=== PATIENT | female | born 1965 | race Caucasian/White ===

== ENCOUNTER 2019-12-07 01:03 | Observation (INO) ==
[2019-12-07] MEDS ORDERED: ASPIRIN EC 325 MG TABLET PO STA (01:26)
[2019-12-07] MEDS ORDERED: NITROGLYCERIN SL 0.4 MG TABLET SL STA (01:26)
[2019-12-07 01:29] LABS: Basophils # 0.1 10*3/uL (0.0-0.2); Basophils % 0.5 % (0.0-0.8); Eosinophils # 0.4 10*3/uL (0.0-0.87); Eosinophils % 2.7 % (0.00-10.9); Hematocrit 37.6 VOL% (35.7-47.0); Hemoglobin 12.5 GM/DL (12.0-16.0); Immature Granulocytes % 0.4 %; Immature Granulocytes Absolute 0.06 #; Lymphocytes # 5.8 10*3/uL (1.4-4.0); Mean Corpuscular HGB Conc 33.2 GM/DL (32-36); Mean Corpuscular Volume 95.9 FL (87-102); Mean Platelet Volume 10.9 FL (9.6-12.0); Monocytes % 7.4 % (1.7-12.7); Platelet Count 216 T/CUMM (130-400); Red Blood Count 3.92 MC/CUMM (3.8-5.5); Red Cell Distribution Width 13.8 % (9.3-17.3); White Blood Count 14.4 T/CUMM (4-12)
[2019-12-07] MEDS ORDERED: ASPIRIN 325 MG TABLET ONE (01:29)
[2019-12-07] MEDS ORDERED: ASPIRIN 325 MG TABLET PO STA (01:30)
[2019-12-07 01:40] LABS: INR 0.9
[2019-12-07 01:57] LABS: Alanine Aminotransferase 18 U/L (13-56); Albumin 3.3 G/DL (3.4-5.0); Alkaline Phosphatase 55 U/L (45-117); Aspartate Amino Transferase 14 U/L (0-37); Bilirubin,Total < 0.39 MG/DL (0.2-1.0); Blood Urea Nitrogen 15 MG/DL (7-18); Calcium 8.7 MG/DL (8.5-10.1); Estimated Glom Filtration Rate 61 ML/MIN; Glucose 88 MG/DL (74-106); Osmolality,Calculated 282.1 MOS/KG (273-304); Total Protein 6.8 G/DL (6.4-8.3)
[2019-12-07 02:13] LABS: Band Neutrophils 1 % (0-10); Eosinophils 1 % (0-10); Lymphocytes 49 % (20-55); Platelet Estimate Normal; Segmented Neutrophils 45 % (50-85); Total Cells Counted 100
[2019-12-07] MEDS ORDERED: ACETAMINOPHEN 325 MG TABLET PO PRN (02:51)
[2019-12-07] MEDS ORDERED: GLUCAGON 1 MG VIAL IM PRN (02:51)
[2019-12-07] MEDS ORDERED: DEXTROSE 50% 25 GM/50 ML VIAL IV PRN (02:51)
[2019-12-07] MEDS ORDERED: ONDANSETRON 4 MG/2 ML VIAL IV PRN (02:51)
[2019-12-07 03:33] LABS: Risk Ratio 3.51; VLDL CHOLESTEROL 59.8 MG/DL
[2019-12-07 05:31] LABS: Basophils # 0.1 10*3/uL (0.0-0.2); Basophils % 0.5 % (0.0-0.8); Eosinophils # 0.3 10*3/uL (0.0-0.87); Eosinophils % 2.5 % (0.00-10.9); Hematocrit 34.8 VOL% (35.7-47.0); Hemoglobin 11.7 GM/DL (12.0-16.0); Immature Granulocytes % 0.3 %; Immature Granulocytes Absolute 0.04 #; Lymphocytes % 33.9 % (21.3-54.2); Mean Corpuscular HGB Conc 33.6 GM/DL (32-36); Mean Corpuscular Volume 96.1 FL (87-102); Mean Platelet Volume 11.2 FL (9.6-12.0); Neutrophils % 55.8 % (38.7-73.9); Platelet Count 200 T/CUMM (130-400); Red Blood Count 3.62 MC/CUMM (3.8-5.5); Red Cell Distribution Width 13.8 % (9.3-17.3); White Blood Count 11.8 T/CUMM (4-12)
[2019-12-07] MEDS ORDERED: ASPIRIN EC 81 MG TABLET PO SCH (09:00)
[2019-12-07] MEDS ORDERED: PANTOPRAZOLE 40 MG TABLET PO SCH (09:00)
[2019-12-07] MEDS ORDERED: ENOXAPARIN 40 MG/0.4 ML SYRINGE SUBCUT SCH (09:00)
[2019-12-07 12:14] VITALS: BP 117/65
[2019-12-07] MEDS ORDERED: ATORVASTATIN 40 MG TABLET PO SCH (21:00)
== END 2019-12-07 13:05 | disposition home or self-care (01) ==
LOC: EDSEX → N.EDINP 01:03 → N.ED 01:03 → N.TELEN 03:25
PROVIDERS: ADMIT Internal Medicine; ATTEND Internal Medicine

== ENCOUNTER 2021-07-25 04:43 | Observation (INO) ==
[2021-07-25] MEDS ORDERED: NITROGLYCERIN 2% OINT 1 INCH/GM PACK TOP STA (05:02)
[2021-07-25] MEDS ORDERED: ALBUTEROL/IPRATROPIUM 3 ML NEB RESP TX STA (05:02)
[2021-07-25] MEDS ORDERED: ONDANSETRON 4 MG/2 ML VIAL IV STA (05:02)
[2021-07-25] MEDS ORDERED: methylPREDNISolone SOD SUC 125 MG/2 ML VIAL IV STA (05:02)
[2021-07-25] MEDS ORDERED: MORPHINE 2 MG/1 ML SYRINGE IV STA (05:02)
[2021-07-25] MEDS ORDERED: ASPIRIN 325 MG TABLET PO STA (05:02)
[2021-07-25 05:29] LABS: Basophils # 0.1 10*3/uL (0.0-0.2); Basophils % 0.6 % (0.0-0.8); Eosinophils # 0.3 10*3/uL (0.0-0.87); Eosinophils % 2.5 % (0.00-10.9); Hematocrit 39.2 VOL% (35.7-47.0); Hemoglobin 12.5 GM/DL (12.0-16.0); Immature Granulocytes % 0.2 %; Immature Granulocytes Absolute 0.02 #; Lymphocytes # 4.8 10*3/uL (1.4-4.0); Lymphocytes % 44.5 % (21.3-54.2); Mean Corpuscular HGB Conc 31.9 GM/DL (32-36); Mean Corpuscular Volume 97.5 FL (87-102); Mean Platelet Volume 10.2 FL (9.6-12.0); Monocytes # 0.9 10*3/uL (0.11-0.8); Monocytes % 7.9 % (1.7-12.7); Neutrophils % 44.3 % (38.7-73.9); Platelet Count 261 T/CUMM (130-400); Red Blood Count 4.02 MC/CUMM (3.8-5.5); Red Cell Distribution Width 13.6 % (9.3-17.3); White Blood Count 10.8 T/CUMM (4-12)
[2021-07-25 05:40] LABS: INR 0.9; PT Patient Result 10.3 SECS (10.5-12.0); Partial Thromboplastin Time 27.2 SECS (23.8-32.1)
[2021-07-25] MEDS ORDERED: ENOXAPARIN 100 MG/ML SYRINGE SUBCUT STA (05:59)
[2021-07-25 06:01] LABS: Alanine Aminotransferase 15 U/L (13-56); Albumin 3.2 G/DL (3.4-5.0); Alkaline Phosphatase 53 U/L (45-117); Aspartate Amino Transferase 13 U/L (0-37); Bilirubin,Total < 0.39 MG/DL (0.20-1.00); Blood Urea Nitrogen 12 MG/DL (7-18); Calcium 8.7 MG/DL (8.5-10.1); Carbon Dioxide 24 MMOL/L (21-32); Chloride 111 MMOL/L (98-107); Glucose 102 MG/DL (74-106); Osmolality,Calculated 278.4 MOS/KG (273-304); Potassium 3.4 MMOL/L (3.5-5.1); Sodium 140 MMOL/L (136-145); Total Protein 6.6 G/DL (6.4-8.2)
[2021-07-25] MEDS ORDERED: DEXTROSE 10% 250 ML BAG IV PRN (06:24)
[2021-07-25] MEDS ORDERED: ACETAMINOPHEN 325 MG TABLET PO PRN (06:24)
[2021-07-25] MEDS ORDERED: GLUCAGON 1 MG VIAL IM PRN (06:24)
[2021-07-25] MEDS ORDERED: MORPHINE 2 MG/1 ML SYRINGE IV PRN (06:24)
[2021-07-25] MEDS ORDERED: NICOTINE 21 MG/24 HR PATCH TRANSDERM PRN (06:24)
[2021-07-25] MEDS ORDERED: ONDANSETRON 4 MG/2 ML VIAL IV PRN (06:24)
[2021-07-25] MEDS ORDERED: POTASSIUM CHLORIDE 20 MEQ TABLET PO ONE (06:30)
[2021-07-25] MEDS ORDERED: CLORAZEPATE 3.75 MG TABLET PO PRN (06:34)
[2021-07-25] MEDS ORDERED: ALBUTEROL/IPRATROPIUM 3 ML NEB RESP TX PRN (06:34)
[2021-07-25 07:05] LABS: Risk Ratio 3.97; Thyroid Stimulating Hormone 2.49 uIU/ml (0.358-3.74); VLDL Cholesterol 73.8 MG/DL
[2021-07-25 07:48] LABS: Barbiturates Screen,Urine Negative (Negative); Benzodiazepines Screen,Urine Negative (Negative); Cannabinoid Screen,Urine Negative (Negative); Opiate Screen,Urine Positive (Negative); Phencyclidine Screen,Urine Negative (Negative)
[2021-07-25] MEDS ORDERED: PANTOPRAZOLE 40 MG TABLET PO SCH (09:00)
[2021-07-25 11:52] VITALS: BP 95/75
[2021-07-25] MEDS ORDERED: OMEGA 3 ACID ETHYL ESTERS 1 GM CAPSULE PO SCH (21:00)
== END 2021-07-25 14:07 | disposition home or self-care (01) ==
LOC: SUATTDRO → N.EDINP 04:43 → N.ED 04:43 → N.EDINP 14:09
PROVIDERS: ADMIT Hospitalist; ATTEND Hospitalist